=== PATIENT | female | born 1940 | race Caucasian/White ===

== ENCOUNTER 2020-04-07 10:15 | Emergency (ER) | payer MEDICARE, BC ==
[~2020-04-07] VITALS: Ht 152.4 cm; Wt 84.0 kg
[2020-04-07 11:27] LABS: HEMATOCRIT 40.7 % (37.0-47.0); HEMOGLOBIN 12.4 g/dl (12.0-16.0); IMMATURE GRANULOCYTES 0.4 % (0.0-5.0); MEAN CELL VOLUME 97.4 fL CALC (80.0-100.0); MEAN CORPUSCULAR HGB 29.7 pG CALC (26.0-32.0); MEAN CORPUSCULAR HGB CONC 30.5 g/dL CAL (32.0-36.0); NEUT# 5.47 thou/uL (2.00-7.15); RED BLOOD COUNT 4.18 mill/uL (4.20-5.60); RED CELL DISTRI WIDTH 15.9 % (11.5-15.5)
[2020-04-07 11:45] LABS: ACT PARTIAL THROMBO TIME 27.9 SECONDS (20.0-32.5); ALBUMIN 4.1 g/dL (3.2-5.0); ALKALINE PHOSPHATASE 73 u/l (38-126); ANION GAP 11 (6-22 (CALC)); BILIRUBIN, TOTAL 0.9 mg/dL (0.0-1.4); BUN 37 mg/dL (8-23); BUN/CREATININE RATIO 23 (12-20 (CALC)); CARBON DIOXIDE 30 mmol/l (22-30); CHLORIDE 104 mmol/l (95-108); CREATININE 1.7 mg/dL (0.5-1.0); GFR 29 ML/MIN (>=60 (CALC)); GFR FOR AFR.AMER. 35 ML/MIN (>=60 (CALC)); INTERNATIONAL NORMALIZED RATIO 1.6 RATIO (0.7-1.3); POTASSIUM 3.8 mmol/l (3.5-5.1); PROTHROMBIN TIME 15.6 SECONDS (9.0-12.5); SGOT/AST 29 u/l (9-36); SODIUM 140 mmol/l (137-146); TOTAL PROTEIN 7.4 g/dL (6.3-8.2)
[2020-04-07 14:56] LABS: URINE BILIRUBIN - DIPSTICK NEGATIVE (NEGATIVE); URINE BLOOD DIPSTICK NEGATIVE (NEGATIVE); URINE COLOR YELLOW; URINE GLUCOSE - DIPSTICK NEGATIVE (NEGATIVE); URINE KETONE NEGATIVE (NEGATIVE); URINE NITRITE - DIPSTICK NEGATIVE (Negative); URINE PH 6.5 (4.5-8.0); URINE PROTEIN - DIPSTICK 30 mg/dL (NEG-TRACE); URINE UROBILINOGEN - DIPSTICK 0.2 E.U./dL (0.2)
[2020-04-07 14:57] LABS: URINE LEUK ESTERASE SMALL (NEGATIVE)
[2020-04-07 15:04] LABS: URINE SQUAMOUS EPITHELIAL CELL FEW EPI/hpf (0-FEW)
[2020-04-07] MEDS ORDERED: NITROFURANTN100 M2 PO (16:15)
[2020-04-07] MEDS ORDERED: MECLIZINE25 MG PO (16:15)
[2020-04-07] MEDS ORDERED: ZOFRAN4 MG/TAB PO (16:15)
[2020-04-07 16:41] VITALS: BP 136/58
== END 2020-04-07 16:30 | disposition home or self-care (01) ==
LOC: ED 10:15
PROVIDERS: Student in an Organized Health Care Education/Training Program
DX: R42 Dizziness and giddiness (principal); N39.0 Urinary tract infection, site not specified; I11.0 Hypertensive heart disease with heart failure; I50.9 Heart failure, unspecified; J44.9 Chronic obstructive pulmonary disease, unspecified; E11.9 Type 2 diabetes mellitus without complications; I48.91 Unspecified atrial fibrillation; B96.1 Klebsiella pneumoniae [K. pneumoniae] as the cause of diseases classified elsewhere; Z95.0 Presence of cardiac pacemaker
CPT/HCPCS: J2060

== ENCOUNTER 2020-05-14 16:47 | Emergency (ER) | payer MEDICARE, BC ==
[~2020-05-14] VITALS: Ht 152.4 cm; Wt 84.0 kg
[~2020-05-14 16:47] MED LIST: MECLIZINE25 MG PO; NITROFURANTN100 M2 PO; ZOFRAN4 MG/TAB PO
[2020-05-14] MEDS ORDERED: ALBUTEROL SUL0.083 % IN (17:05)
[2020-05-14] MEDS ORDERED: CARVEDILOL25 MG PO (17:05)
[2020-05-14] MEDS ORDERED: FUROSEMIDE20 MG PO (17:06)
[2020-05-14] MEDS ORDERED: ARNUITY EL50 MCG/ACT IN (17:07)
[2020-05-14] MEDS ORDERED: GABAPENTIN100 MG PO (17:08)
[2020-05-14] MEDS ORDERED: ISOSORBIDE MONO60 MG PO (17:08)
[2020-05-14] MEDS ORDERED: TRESIBA FL100 UNIT/M SC (17:13)
[2020-05-14] MEDS ORDERED: WARFARIN5 MG PO (17:13)
[2020-05-14] MEDS ORDERED: K-TAB20 MEQ PO (17:14)
[2020-05-14] MEDS ORDERED: FLOXIN OTIC0.3 % AU (18:13)
[2020-05-14 18:18] VITALS: BP 154/77
== END 2020-05-14 18:19 | disposition home or self-care (01) ==
LOC: ED 16:47
PROC: 3E1B78Z Irrigation of Ear using Irrigating Substance, Via Natural or Artificial Opening (ICD-10-PCS; principal; 2020-05-14)
PROC: 3E1B78Z Irrigation of Ear using Irrigating Substance, Via Natural or Artificial Opening (ICD-10-PCS; 2020-05-14)
DX: H61.23 Impacted cerumen, bilateral (principal); E11.9 Type 2 diabetes mellitus without complications; I11.0 Hypertensive heart disease with heart failure; I50.9 Heart failure, unspecified; J44.9 Chronic obstructive pulmonary disease, unspecified; I48.91 Unspecified atrial fibrillation; Z95.0 Presence of cardiac pacemaker; Z79.4 Long term (current) use of insulin